=== PATIENT | female | born 1960 | race African-American/Black ===

== ENCOUNTER 2020-05-21 05:55 | Emergency (ER) | payer BC ==
[~2020-05-21] VITALS: Ht 170.2 cm; Wt 77.1 kg
[~2020-05-21 05:55] MED LIST: CIPROFLOXACIN500 M1 PO; IBUPROFEN 600600 M1 PO; NOHOMEMEDICATIONS; NORCO 5-325 TA1 EACH PO; VENTOLIN17 GM INH; ZPAK PO
[2020-05-21 06:44] LABS: URINE BILIRUBIN NEGATIVE (Negative); URINE BLOOD TRACE (Negative); URINE CLARITY SL CLOUDY; URINE COLOR YELLOW; URINE GLUCOSE-RANDOM* NEGATIVE (Negative); URINE KETONES NEGATIVE (Negative); URINE NITRITE-REFLEX NEGATIVE (Negative); URINE PROTEIN (DIPSTICK) NEGATIVE (Negative); URINE SPECIFIC GRAVITY >= 1.030 (1.005-1.035); URINE UROBILINOGEN 0.2 E.U./dl (0.2-1.0)
[2020-05-21 06:46] LABS: URINE LEUKOCYTES-REFLEX 2+ (Negative)
[2020-05-21 07:08] LABS: BACTERIA-REFLEX 1-9 Few /HPF (None Seen); CASTS None Seen /LPF (None Seen); CRYSTALS None Seen /LPF (None Seen); SQUAMOUS 0-3 Few /LPF (0-3); URINE RBC 0-2 Rare /HPF (0-2)
[2020-05-21 07:11] LABS: ABSOLUTE NEUTROPHILS 1.7 thou/uL (1.4-8.2); BASOPHILS 0.9 % (0.0-2.0); EOSINOPHILS 2.2 % (0.0-3.0); HEMATOCRIT 40.1 % (37.0-47.0); HEMOGLOBIN 13.2 gm/dL (12.0-15.0); LYMPHOCYTES 44.1 % (24.0-44.0); MCV 87.8 fL (80.0-100.0); PLATELET COUNT 175 thou/uL (150-400); POLYS 41.8 % (36.0-66.0); RBC 4.56 mil/uL (4.20-5.00); RDW 14.1 % (10.5-14.5); WBC 4.2 thou/uL (4.0-11.0)
[2020-05-21 07:14] LABS: CALCIUM 9.1 mg/dL (8.5-10.1); POTASSIUM 4.2 mmol/L (3.5-5.1)
[2020-05-21 07:21] LABS: ALBUMIN 3.6 g/dL (3.4-5.0); TOTAL BILIRUBIN 0.3 mg/dL (0.2-1.0); TOTAL PROTEIN 7.8 g/dL (6.4-8.2)
[2020-05-21 08:45] VITALS: BP 144/67
== END 2020-05-21 08:58 | disposition home or self-care (01) ==
LOC: ER 05:55
PROVIDERS: Emergency Medicine
DX: K80.50 Calculus of bile duct without cholangitis or cholecystitis without obstruction (principal); Z79.2 Long term (current) use of antibiotics; Z79.1 Long term (current) use of non-steroidal anti-inflammatories (NSAID)

== ENCOUNTER 2020-07-01 08:02 | Day surgery (SDC) | payer BC, OTHER ==
[~2020-07-01] VITALS: Ht 170.2 cm; Wt 85.7 kg
[2020-07-01 09:23] VITALS: BP 125/80
[2020-07-01] MEDS ORDERED: OXYCODONE HCL 55 MG PO (11:33)
[2020-07-01] MEDS ORDERED: IBUPROFEN 200200 M1 PO (11:33)
[2020-07-01] MEDS ORDERED: MIRALAX17 GM PO (11:34)
[2020-07-01] MEDS ORDERED: ACETAMINOPHEN325 M1 PO (11:34)
[2020-07-01] MEDS ORDERED: COLACE 100 MG100 MG PO (11:34)
[2020-07-01 11:58] VITALS: BP 125/80
--- NOTE | 2020-07-05 18:06 | PATH ---
[facility] [address] [place] [address] PATHOLOGY RPT PROCEDURE Name: PEDRO BAKER Room #: DEP [facility] M.R.#: [id number] Admission: 07/01/20 Date of : 56 Discharge: 07/01/20 Report #: [id number] Path Case #: [id number] [facility] Accession Number: [id number] . 01 Material submitted: . gallbladder - GALLBLADDER . 01 Clinical history: . SYMPTOMATIC CHOLELITHIASIS . 02 Diagnosis: Gallbladder, cholecystectomy: - Mild chronic cholecystitis. (IUV/db; 07/05/2020) LBQ 07/05/2020 1255 Local . 02 Electronically signed: . Sofiya Redd MD, Pathologist NPI- [id number] . 01 Gross description: . Received in formalin labeled "Pedro Baker, gallbladder" is an intact cholecystectomy specimen measuring 6.3 x 3.5 x 1.8 cm. The serosa is kilgore-green and smooth and the specimen is opened to reveal dark green velvety mucosa without polyps or masses. The average wall thickness is 0.1 cm. Calculi are not identified within the gallbladder or container. [employer] Advisor sections of the fundus and body and the cystic duct margin are submitted in A1. ([facility]; 07/01/2020) [facility] 07/01/[address] [place] [address] . 02 Pathologist provided ICD-10: K81.1 . 02 CPT . 382024 Specimen Comment: A courtesy copy of this report has been sent to [phone] Specimen Comment: Report sent to Performed at: [address], [place] [id number] MD Joseph Alexandra MD Phone: [phone] Performed at: [address] [id number] MD Sofiya Redd MD Phone: [phone]
== END 2020-07-01 13:05 | disposition home or self-care (01) ==
LOC: OR 08:02 → TBA 08:05 → OR 08:32
PROVIDERS: ATTEND Surgery
DX: K81.1 Chronic cholecystitis (principal); R10.11 Right upper quadrant pain; Z98.890 Other specified postprocedural states; Z79.899 Other long term (current) drug therapy; Z20.828 Contact with and (suspected) exposure to other viral communicable diseases
CPT/HCPCS: 50010; 50101; 50411; 50555; 50558; 52265; 52266; 53307; 53310; 53312; 54022; 54118; 55245; 56462; 56525; 56526; 62110; 62900; 70005